=== PATIENT | female | born 1990 | race Caucasian/White ===

== ENCOUNTER 2017-03-13 10:22 | Day surgery (SDC) | payer BC ==
[~2017-03-13] VITALS: Ht 160 cm; Wt 58.9 kg
[~2017-03-13 10:22] MED LIST: COLACE100 MG PO; FEOSOL325 MG PO; FLUOXETINE HCL10 M1 PO; MOTRIN800 MG PO; OMEPRAZOLE40 M1 PO; PERCOCET 5/31 TABLET PO; PRENATAL TABLE1 EAC3 PO; PROTONIX40 MG PO
[2017-03-13 10:53] VITALS: BP 99/56
[2017-03-13 11:02] LABS: BASOPHIL COUNT 0.1 K/uL (0-0.1); EOSINOPHIL (%) 0.6 % (0-5); EOSINOPHIL COUNT 0.1 K/uL (0-0.3); HEMATOCRIT 43.4 % (36.0-46.0); IMMATURE GRANULOCYTE (%) 0.5 % (0.0-0.7); IMMATURE GRANULOCYTE COUNT 0.1 K/uL; INSTRUMENT ABS NEUTROPHIL CT 6.3 K/uL; LYMPHOCYTE COUNT 2.5 K/uL (1.0-2.8); MCH 31.3 PG (29.0-34.0); MCHC 33.9 G/DL (30.0-36.0); MCV 92.3 FL (83-99); MEAN PLAT.VOLUME 9.4 uM^3 (9.5-12.4); MONOCYTE COUNT 0.7 K/uL (0-0.8); NEUTROPHIL (%) 65.2 % (45-76); NEUTROPHIL COUNT 6.3 K/uL (1.8-6.4); PLATELET COUNT 278 K/uL (156-360); RBC DIS.WIDTH-CV 13.1 % (11.8-14.6); RBC DIS.WIDTH-SD 44.2 % (39-53); WHITE BLOOD COUNT 9.6 K/uL (4.1-10.2)
[2017-03-13 14:10] VITALS: BP 96/61
== END 2017-03-13 14:30 | disposition home or self-care (01) ==
LOC: SDC 10:22
PROVIDERS: Obstetrics & Gynecology
PROC: 10D17ZZ Extraction of Products of Conception, Retained, Via Natural or Artificial Opening (ICD-10-PCS; principal; 2017-03-13)
DX: O02.1 Missed abortion (principal); Z3A.08 8 weeks gestation of pregnancy; K21.9 Gastro-esophageal reflux disease without esophagitis; F32.9 Major depressive disorder, single episode, unspecified
CPT/HCPCS: 85025; 86850; 86900; 86901; 87086; 88305; 93005; J0330; J1100; J2250; J2405; J3010